=== PATIENT | female | born 2000 | race Caucasian/White ===

== ENCOUNTER 2023-02-08 22:27 | Emergency (ER) | payer SELFPAY ==
[~2023-02-08] VITALS: Ht 167.6 cm; Wt 77.0 kg
[2023-02-08 22:33] VITALS: BP 142/100
== END 2023-02-08 23:33 | disposition left against medical advice (07) ==
LOC: ER 22:27
DX: Z53.21 Procedure and treatment not carried out due to patient leaving prior to being seen by health care provider (principal)
CPT/HCPCS: 99281